=== PATIENT | male | born 1985 | race Hispanic/Latino ===

== ENCOUNTER 2023-09-15 11:00 | Emergency (ER) | payer SELFPAY ==
[2023-09-15] VITALS (9 sets, daily range): BP systolic 126–194; BP diastolic 75–121; PULSE 73–98; RESP 16–20; TEMP 36.4–36.7; O2SAT 96–100
--- NOTE | ~2023-09-15 | XR_ITS ---
EXAMINATION: XR shoulder LT min 2V DATE: 09/15/2023 11:23 INDICATION: Left shoulder injury. Fall. TECHNIQUE: 3 views of left shoulder were obtained. COMPARISON: None. FINDINGS: There is anterior dislocation of humeral head with respect to glenoid. No fracture. Joint s paces are normal. IMPRESSION: 1. Anterior left shoulder dislocation. Reviewed, dictated and finalized at location E.
--- NOTE | ~2023-09-15 | XR_ITS ---
EXAMINATION: XR shoulder LT min 2V DATE: 09/15/2023 12:11 INDICATION: Left shoulder dislocation status post reduction. TECHNIQUE: 3 views of left shoulder were obtained. COMPARISON: Left shoulder radiographs at 11:16 AM FINDINGS: Bone alignment is normal. No fracture. Joint spaces are normal. IMPRESSION: 1. Normal alignment at glenohumeral joint. Reviewed, dictated and finalized at location E.
[2023-09-15] MEDS: MORPHINE SULFATE (*CRX) 4 MG/ML INJ IV PUSH (11:11)
--- NOTE | 2023-09-15 11:11 | ED.GENADULT ---
HPI - General Adult General Chief complaint: Extremity Injury, Upper Stated complaint: left hand injury Time Seen by Provider: 09/15/23 11:02 History of Present Illness HPI narrative: Christopher is a 37M with a PMH of left shoulder dislocations that presented to the ED after he fell in a hole and landed on his left shoulder. He had immediate pain and trouble moving it as well as anterior deformity. Related Data Allergies Allergy/AdvReac Type Severity Reaction Status Date / Time No Known Allergies Allergy Verified 09/15/23 11:10 Review of Systems Review of Systems: All systems reviewed & are unremarkable except as noted in HPI and below Exam Const: General: cooperative, healthy appearing, no acute distress, well developed, alert, awake and Physically active Orientation/consciousness: oriented to person, oriented to place and oriented to time Other: in mild to moderate discomfort. HENMT: Head: normal to inspection, normocephalic and atraumatic Ears: hearing grossly normal bilaterally and external ears normal Face/Nose/Sinus: Normal external nose present Eyes: General: appearance normal, both eyes and all related structures Periorbital: periorbital findings normal Sclera: sclerae normal Pupils: Equal, round and reactive pupils present Neck: Neck: normal visual inspection Chest: Chest palpation & inspection: normal inspection of the chest Resp: Effort & Inspection: normal respiratory effort, able to speak in complete sentences and no respiratory distress Cardio: Jugular venous distension: no JVD Skin: General skin exam: normal color and no rashes or lesions noted Neuro: General: oriented to person, oriented to place and oriented to time Cranial nerves: Yes Equal, round and reactive pupils present Extrem: General: normal to inspection Course Course Emergency Course: Ordered morphine and radiographs EXAMINATION: XR shoulder LT min 2V DATE: 09/15/2023 11:23 INDICATION: Left shoulder injury. Fall. TECHNIQUE: 3 views of left shoulder were obtained. COMPARISON: None. FINDINGS: There is anterior dislocation of humeral head with respect to glenoid. No fracture. Joint spaces are normal. IMPRESSION: 1. Anterior left shoulder dislocation. Moderate sedation performed with ketamine. Shoulder reduced as below. Neurovascularly intact before and after reduction. EXAMINATION: XR shoulder LT min 2V DATE: 09/15/2023 12:11 INDICATION: Left shoulder dislocation status post reduction. TECHNIQUE: 3 views of left shoulder were obtained. COMPARISON: Left shoulder radiographs at 11:16 AM FINDINGS: Bone alignment is normal. No fracture. Joint spaces are normal. IMPRESSION: 1. Normal alignment at glenohumeral joint. He was monitored for 2 hours and left in stable condition. Vital Signs Vital signs: Vital Signs Temperature 97.9 F 09/15/23 11:00 Pulse Rate 86 09/15/23 11:00 Respiratory Rate 18 09/15/23 11:00 Blood Pressure 153/102 H 09/15/23 11:00 Pulse Oximetry 99 09/15/23 11:00 Oxygen Delivery Room Air 09/15/23 11:00 Temperature 97.7 F 09/15/23 13:00 Pulse Rate 73 09/15/23 13:00 Respiratory Rate 20 09/15/23 13:00 Blood Pressure 126/87 09/15/23 13:00 Pulse Oximetry 97 09/15/23 13:00 Oxygen Delivery Room Air 09/15/23 13:00 Procedures Orthopedic Joint Reduction Joint #1: Orthopedic Joint Reduction Date: 09/15/23 Time Out Performed: Yes Side: left Joint Reduction Location: shoulder Analgesia: procedural sedation Pre-Procedure Neuro Vascular Exam: normal Shoulder Technique Used (if applicable): other (SUNI) Post-reduction neuro exam: intact Post-reduction vascular: intact Post Reduction X-Ray Obtained: Yes Splint Applied: Yes Procedural Sedation Procedural Sedation #1: Procedural Sedation Date: 09/15/23 Presedation Evaluation: A&Ox3, in moderate pain from anterior shoulder dislocation. N
[2023-09-15] MEDS: KETAMINE HCL (*CRX) 500 MG/10 ML VIAL 100 MG IV PUSH (11:55)
== END 2023-09-15 13:39 | disposition home or self-care (01) ==
PROVIDERS: Emergency Provider Family Medicine
DX: S43.015A Anterior dislocation of left humerus, initial encounter (principal); W17.2XXA Fall into hole, initial encounter
CPT/HCPCS: 23650; 73030; 96374; 99285; A4565; J2270